=== PATIENT | male | born 1940 | race Caucasian/White ===

== ENCOUNTER 2019-07-21 12:15 | Inpatient (IN) | payer MEDICARE, MEDICAID ==
[~2019-07-21] VITALS: Ht 182.9 cm; Wt 87.6 kg
[~2019-07-21 12:15] MED LIST: ACET-1574 PO; ACET325T9 PO; ASPI-482 PO; ATOR10TA60 PO; BUSP5TAB PO; CALC-326 PO; DIVA125C2 PO; ERGO500027 PO; MAG30ORA2 PO; MAGN400O7 PO; METH29OI TP; POTA20TA4 PO; SENN-80 PO; SENN-82 PO; SERT100T PO
--- NOTE | 2019-07-21 12:31 | PHYS DOC ---
Past History Past Medical History: CVA, Dementia, Hypertension, TIA Past Surgical History: No Surgical History Smoking: Non-smoker Alcohol Use: None Drug Use: None Adult General Chief Complaint Chief Complaint: PSYCH EVALUATION [facility] HPI Patient is a 78-year-old male sent from his current assisted care residence due to behavioral issues. He has been approaching staff from behind and trying to scare them. He is been pulling on other residence shirts or taking personal items from other residents. He has been having periods of agitation. He will grab others and shake their arms, trying to kiss the staff, and pressing himself against others. Uncertain as to how long this is been going on. History is limited from the patient due to his previous CVA and history of dementia. Patient is uncertain as to why he is here at [facility].[] Review of Systems Review of Systems Constitutional: Denies fever or chills [] Eyes: Denies change in visual acuity, redness, or eye pain [] HENT: Denies nasal congestion or sore throat [] Respiratory: Denies cough or shortness of breath [] Cardiovascular: No additional information not addressed in [facility] [] GI: Denies abdominal pain, nausea, vomiting, bloody stools or diarrhea [] : Denies dysuria or hematuria [] Musculoskeletal: Denies back pain or joint pain [] Integument: Denies rash or skin lesions [] Neurologic: Denies headache, focal weakness or sensory changes [] Endocrine: Denies polyuria or polydipsia [] All other systems were reviewed and found to be within normal limits, except as documented in this note. Allergies Allergies Allergies Coded Allergies Type Severity Reaction Last Updated Verified Tetracyclines Allergy Intermediate 09/05/15 Yes ciprofloxacin Allergy Intermediate 09/05/15 Yes codeine Allergy Intermediate 09/05/15 Yes gatifloxacin Allergy Intermediate 09/05/15 Yes levofloxacin Allergy Intermediate 09/05/15 Yes ofloxacin Allergy Intermediate 09/05/15 Yes Physical Exam Physical Exam Constitutional: Well developed, well nourished, no acute distress, non-toxic appearance. [] HENT: Normocephalic, atraumatic, bilateral external ears normal, oropharynx moist, no oral exudates, nose normal. [] Eyes: PERRLA, EOMI, conjunctiva normal, no discharge. [] Neck: Normal range of motion, no tenderness, supple, no stridor. [] Cardiovascular:Heart rate regular rhythm, no murmur [] Lungs & Thorax: Bilateral breath sounds clear to auscultation [] Abdomen: Bowel sounds normal, soft, no tenderness, no masses, no pulsatile masses. [] Skin: Warm, dry, no erythema, no rash. [] Back: No tenderness, no CVA tenderness. [] Extremities: No tenderness, no cyanosis, no clubbing, ROM intact, no edema. [] Neurologic: Alert and oriented X 2, able to move all 4 extremities however right side appears weaker than the left, normal sensory function, right facial droop is present. [] Psychologic: Affect flat, mood normal. [] Current Patient Data Lab Results Laboratory Tests Test 07/21/19 12:23 07/21/19 12:33 Urine Collection Type Unknown Urine Color Aisha Urine Clarity Clear Urine pH 5.5 Urine Specific [place] 1.025 Urine Protein Neg Urine Glucose (UA) Neg mg/dL Urine Ketones (Stick) Trace mg/dL Urine Blood Neg Urine Nitrite Neg Urine Bilirubin Neg Urine Urobilinogen Dipstick 0.2 mg/dL Urine Leukocyte Esterase Neg Urine RBC 0 /HPF Urine WBC Rare /HPF Urine Squamous Epithelial Cells None /LPF Urine Bacteria 0 /HPF Urine Mucus Marked /LPF White Blood Count 8.0 x10^3/uL Red Blood Count 4.89 x10^6/uL Hemoglobin 14.9 g/dL Hematocrit 44.4 % Mean Corpuscular Volume 91 fL Mean Corpuscular Hemoglobin 30 pg Mean Corpuscular Hemoglobin Concent 34 g/dL Red Cell Distribution Width 13.6 % Platelet Count 180 x10^3/uL Neutrophils (%) (Auto) 52 % Lymphocytes (%) (Auto) 34 % Monocytes (%) (Auto) 10 % Eosinophils (%) (Auto) 3 % Basophils (%) (Auto) 1 % Neutrophils # (Auto) 4.2 x10^3uL Lymphocytes # (Auto) 2.7 x10^3/uL Monocytes # (Auto) 0.8 x10^3/uL Eosinophils # (Auto) 0.3 x10^3/uL Basophils # (Auto) 0.1 x10^3/uL Sodium Level 141 mmol/L Potassium Level 3.9 mmol/L Chloride Level 102 mmol/L Carbon Dioxide Level 31 mmol/L Anion Gap 8 Blood Urea Nitrogen 11 mg/dL Creatinine 1.2 mg/dL Estimated GFR (Cockcroft-Gault) 58.4 BUN/Creatinine Ratio 9 Glucose Level 107 mg/dL Calcium Level 9.1 mg/dL Magnesium Level 2.5 mg/dL Total Bilirubin 1.3 mg/dL Aspartate Amino Transf (AST/SGOT) 14 U/L Alanine Aminotransferase (ALT/SGPT) 17 U/L Alkaline Phosphatase 69 U/L Total Protein 8.2 g/dL Albumin 3.9 g/dL Albumin/Globulin Ratio 0.9 Valproic Acid (Depakene) Level 56 mcg/mL Valproic Acid Last Dose Date 07/21/2019 Valproic Acid Last Dose Time 0600 EKG EKG EKG shows a sinus rhythm at 51 bpm, left axis, QTC of 439 ms, no ST elevations. There are flipped T's in the lateral leads. No old EKG available for comparison. Interpreted by me at 1225[] Radiology/Procedures Radiology/Procedures [] Course & Med Decision Making Course & Med Decision Making Pertinent Labs and Imaging studies reviewed. (See chart for details) ED course: Patient arrived, was placed in bed, and tolerated exam well. After the return of the laboratory and EKG results, patient was determined to be medically stable for admission to [facility]. He was admitted in improved condition Medical decision making: Patient with a change in behavior requiring evaluation by [facility]. His magnesium level is noted to be slightly high at 2.5, however do not think that this is the trigger for his change in behavior given that the upper limit of normal is 2.4. Patient is not on any calcium chann el blockers nor magnesium-containing products according to the medicine list sent from the assisted care facility where he resides. This can be followed as needed. There is no evidence of a urinary tract infection causing this change in behavior. Do not see this as a stroke syndrome.[] Dragon Disclaimer Dragon Disclaimer This electronic medical record was generated, in whole or in part, using a voice recognition dictation system. Departure Departure: Impression: Primary Impression: Medical clearance for psychiatric admission Disposition: ADMITTED INPATIENT Admitting Physician: Other Condition: IMPROVED Referrals: GINO PAULINO [facility], MD (PCP) APOLLO MCCARTHY DO Jul 21, 2019 12:31
[2019-07-21 12:48] LABS: BASO # 0.1 x10^3/uL (0.0-0.2); BASO % 1 % (0-3); EOS # 0.3 x10^3/uL (0.0-0.7); EOS % 3 % (0-3); HEMATOCRIT 44.4 % (39.0-53.0); HEMOGLOBIN 14.9 g/dL (13.0-17.5); LYMPH # 2.7 x10^3/uL (1.0-4.8); LYMPH % 34 % (24-48); MEAN CORPUSCULAR HEMOGLOBIN 30 pg (25-35); MEAN CORPUSCULAR HGB CONC 34 g/dL (31-37); MEAN CORPUSCULAR VOLUME 91 fL (79-100); MONO # 0.8 x10^3/uL (0.0-1.1); MONO % 10 % (0-9); NEUT # 4.2 x10^3uL (1.8-7.7); NEUT % 52 % (31-73); PLATELET COUNT 180 x10^3/uL (140-400); RED BLOOD COUNT 4.89 x10^6/uL (4.30-5.70); RED CELL DISTRIBUTION WIDTH 13.6 % (11.5-14.5)
[2019-07-21 12:56] LABS: BILIRUBIN,URINE NEG (NEG); CLARITY,URINE CLEAR; COLOR,URINE AMBER; GLUCOSE,URINE NEG (NEG)
[2019-07-21 12:57] LABS: BACTERIA,URINE 0 /HPF (0-FEW); NITRITE,URINE NEG (NEG); RBC,URINE 0 /HPF (0-2); UROBILINOGEN,URINE 0.2 mg/dL (0.2 mg/dL); WBC,URINE RARE /HPF (0-4)
[2019-07-21 13:01] LABS: ALBUMIN 3.9 g/dL (3.4-5.0); ALBUMIN/GLOBULIN RATIO 0.9 (1.0-1.7); ALK PHOS 69 U/L (46-116); ALT (SGPT) 17 U/L (16-63); ANION GAP 8 (6-14); AST (SGOT) 14 U/L (15-37); BLOOD UREA NITROGEN 11 mg/dL (8-26); BUN/CREATININE RATIO 9 (6-20); CALCIUM 9.1 mg/dL (8.5-10.1); CARBON DIOXIDE 31 mmol/L (21-32); CHLORIDE 102 mmol/L (98-107); CREATININE 1.2 mg/dL (0.7-1.3); GFR 58.4; GLUCOSE 107 mg/dL (70-99); MAGNESIUM 2.5 mg/dL (1.8-2.4); POTASSIUM 3.9 mmol/L (3.5-5.1); SODIUM 141 mmol/L (136-145); TOTAL BILIRUBIN 1.3 mg/dL (0.2-1.0); TOTAL PROTEIN 8.2 g/dL (6.4-8.2); VAL ACID 56 mcg/mL (50-100)
--- NOTE | 2019-07-21 13:19 | EKG ---
[address] [address] Test Date: 2019-07-21 Test Time: 12:19:54 Pat Name: VIMAL GUPTA Department: Room: Gender: M [employer]: : [phone] Requested By: APOLLO MCCARTHY Order Number: [id number] Reading MD: Darryl Altamirano MD Measurements Intervals Cecil Rate: 51 P: -5 VT: 182 QRS: -26 QRSD: 84 T: 140 QT: 474 QTc: 439 Interpretive Statements SINUS RHYTHM LEFTWARD AXIS CONSIDER LEFT VENTRICULAR HYPERTROPHY QRS(T) CONTOUR ABNORMALITY CONSISTENT WITH ANTEROSEPTAL INFARCT PROBABLY OLD T ABNORMALITY IN ANTEROLATERAL LEADS ABNORMAL ECG Electronically Signed On 08-02-2019 14:28:14 CDT by Darryl Altamirano MD
[2019-07-21] MEDS ORDERED: MAG HYDROX/AL HYDROX/SIMETH 30 ML ORAL.SUSP PO PRN (15:00)
[2019-07-21] MEDS ORDERED: ACETAMINOPHEN 325 MG TABLET PO PRN (15:00)
[2019-07-21] MEDS ORDERED: MAGNESIUM HYDROXIDE 2,400 MG/30 ML ORAL.SUSP. PO PRN (15:00)
[2019-07-21] MEDS ORDERED: METHYL SALICYLATE/MENTHOL TOPICAL OINTMENT 57GM TUBE. TP PRN (15:00)
[2019-07-21] MEDS ORDERED: VALP250S18 PO (15:10)
[2019-07-21] MEDS ORDERED: SCOP1PAT11 TD (15:10)
[2019-07-21] MEDS ORDERED: TRAM1TAB56 PO (15:10)
[2019-07-21 15:59] VITALS: BP 117/67
[2019-07-21] MEDS: VALPROATE ACID 250 MG/5 ML ORAL SOLUTION PO SCH ×2 (18:07→20:02)
[2019-07-21] MEDS: busPIRone 10 MG TABLET. PO SCH ×2 (18:07→20:01)
[2019-07-21] MEDS ORDERED: traMADol 50 MG TABLET PO PRN (18:30)
[2019-07-21] MEDS: ATORVASTATIN CALCIUM 20 MG TABLET PO SCH (20:01)
[2019-07-21] MEDS: CALCIUM CARB/VIT D3 500/200 TABLET PO SCH (20:01)
[2019-07-21] MEDS: SENNOSIDES/DOCUSATE 8.6/50MG TABLET. PO SCH (20:01)
--- NOTE | 2019-07-21 22:11 | PDOC ---
Exam Note: Zak Note: Please also refer to the separate dictated note~for this date of service dictated separately. Discussed the patient with Nursing staff reviewed the chart.~Reviewed interim history and current functioning. Reviewed vital signs,~Labs/ Radiology~and current medications noted below. Continue current treatment with the changes noted in the dictated addendum note Assessment: Vital Signs/I&O: Vital Signs Date Time Temp Pulse Resp B/P (MAP) Pulse Ox O2 Delivery O2 Flow Rate FiO2 07/21/19 15:59 98.4 62 18 117/67 (84) 94 07/21/19 12:31 Room Air Labs: Laboratory Tests Test 07/21/19 12:23 07/21/19 12:33 Urine Collection Type Unknown Urine Color Aisha Urine Clarity Clear Urine pH 5.5 Urine Specific [place] 1.025 Urine Protein Neg (NEG-TRACE) Urine Glucose (UA) Neg mg/dL (NEG) Urine Ketones (Stick) Trace mg/dL (NEG) Urine Blood Neg (NEG) Urine Nitrite Neg (NEG) Urine Bilirubin Neg (NEG) Urine Urobilinogen Dipstick 0.2 mg/dL (0.2 mg/dL) Urine Leukocyte Esterase Neg (NEG) Urine RBC 0 /HPF (0-2) Urine WBC Rare /HPF (0-4) Urine Squamous Epithelial Cells None /LPF Urine Bacteria 0 /HPF (0-FEW) Urine Mucus Marked /LPF White Blood Count 8.0 x10^3/uL (4.0-11.0) Red Blood Count 4.89 x10^6/uL (4.30-5.70) Hemoglobin 14.9 g/dL (13.0-17.5) Hematocrit 44.4 % (39.0-53.0) Mean Corpuscular Volume 91 fL (79-100) Mean Corpuscular Hemoglobin 30 pg (25-35) Mean Corpuscular Hemoglobin Concent 34 g/dL (31-37) Red Cell Distribution Width 13.6 % (11.5-14.5) Platelet Count 180 x10^3/uL (140-400) Neutrophils (%) (Auto) 52 % (31-73) Lymphocytes (%) (Auto) 34 % (24-48) Monocytes (%) (Auto) 10 % (0-9) H Eosinophils (%) (Auto) 3 % (0-3) Basophils (%) (Auto) 1 % (0-3) Neutrophils # (Auto) 4.2 x10^3uL (1.8-7.7) Lymphocytes # (Auto) 2.7 x10^3/uL (1.0-4.8) Monocytes # (Auto) 0.8 x10^3/uL (0.0-1.1) Eosinophils # (Auto) 0.3 x10^3/uL (0.0-0.7) Basophils # (Auto) 0.1 x10^3/uL (0.0-0.2) Sodium Level 141 mmol/L (136-145) Potassium Level 3.9 mmol/L (3.5-5.1) Chloride Level 102 mmol/L (98-107) Carbon Dioxide Level 31 mmol/L (21-32) Anion Gap 8 (6-14) Blood Urea Nitrogen 11 mg/dL (8-26) Creatinine 1.2 mg/dL (0.7-1.3) Estimated GFR (Cockcroft-Gault) 58.4 BUN/Creatinine Ratio 9 (6-20) Glucose Level 107 mg/dL (70-99) H Calcium Level 9.1 mg/dL (8.5-10.1) Magnesium Level 2.5 mg/dL (1.8-2.4) H Total Bilirubin 1.3 mg/dL (0.2-1.0) H Aspartate Amino Transferase (AST) 14 U/L (15-37) L Alanine Aminotransferase (ALT) 17 U/L (16-63) Alkaline Phosphatase 69 U/L (46-116) Total Protein 8.2 g/dL (6.4-8.2) Albumin 3.9 g/dL (3.4-5.0) Albumin/Globulin Ratio 0.9 (1.0-1.7) L Valproic Acid Level 56 mcg/mL (50-100) Valproic Acid Last Dose Date 07/21/2019 Valproic Acid Last Dose Time 0600 Current Medications: Meds: Current Medications Medications (Trade) Dose Ordered Sig/Steve Route PRN Reason Start Time Stop Time Status Last Admin Dose Admin Calcium/Vitamin D (Oscal D 500mg/ 200uts) 1 tab BID PO 07/21/19 21:00 07/21/19 20:02 Senna/Docusate Sodium (Senna Plus) 1 tab BID PO 07/21/19 21:00 07/21/19 20:02 Atorvastatin Calcium (Lipitor) 20 mg QHS PO 07/21/19 21:00 07/21/19 20:02 Buspirone HCl (Buspar) 10 mg TID PO 07/21/19 15:30 07/21/19 20:02 Valproic Acid (Depakene) 250 mg TID PO 07/21/19 15:30 07/21/19 20:02 I have reviewed the current psychotropics carefully including drug interactions. Risk benefit ratio favors no change other than as noted in my dictated progress note. Diagnosis: Problems: (1) Anxiety disorder (2) Impulse control disorder (3) Mild cognitive impairment (4) Major depressive disorder, recurrent episode (5) Cerebrovascular accident (CVA) due to vascular occlusion (6) Obsessive compulsive disorder JEANNINE MAGANA MD Jul 21, 2019 22:10
[2019-07-22 01:06] LABS: THYROXINE 7.1 ug/dL (4.5-12.0)
[2019-07-22 04:07] LABS: HEMOGLOBIN A1C 5.9 % (4.8-5.6)
[2019-07-22 06:11] VITALS: BP 122/77
[2019-07-22] MEDS: busPIRone 10 MG TABLET. PO SCH ×3 (07:47→21:39)
[2019-07-22] MEDS: VALPROATE ACID 250 MG/5 ML ORAL SOLUTION PO SCH ×3 (07:47→21:39)
[2019-07-22] MEDS: CALCIUM CARB/VIT D3 500/200 TABLET PO SCH ×2 (07:47→21:39)
[2019-07-22] MEDS: SENNOSIDES/DOCUSATE 8.6/50MG TABLET. PO SCH ×2 (07:47→21:39)
[2019-07-22] MEDS: POTASSIUM CHLORIDE 20 MEQ TABLET.ER. PO SCH (07:50)
[2019-07-22] MEDS: SERTRALINE 100 MG TABLET. PO SCH (07:51)
[2019-07-22] MEDS: ASPIRIN ENTERIC COATED 81 MG TABLET.DR. PO SCH (07:51)
[2019-07-22] MEDS: SCOPOLAMINE 1.5MG PATCH. TD SCH (07:51)
[2019-07-22] MEDS ORDERED: FLU VAX QS 2019-20 (36MOS+)/PF 0.5 ML SYRINGE. VAX IM ONE (08:00)
[2019-07-22] MEDS ORDERED: SCOPOLAMINE 1.5MG PATCH. TD SCH (09:00)
[2019-07-22 14:11] LABS: THYROID STIM HORMONE (TSH) 2.352 uIU/mL (0.358-3.740)
[2019-07-22 17:00] VITALS: BP 125/74
[2019-07-22] MEDS: ATORVASTATIN CALCIUM 20 MG TABLET PO SCH (21:39)
--- NOTE | 2019-07-22 21:49 | PDOC ---
Exam Note: Zak Note: Please also refer to the separate dictated note~for this date of service dictated separately.~Patient seen individually. Discussed the patient with Nursing staff reviewed the chart.~Reviewed interim history and current functioning. Reviewed vital signs,~Labs/ Radiology~and current medications noted below. Continue current treatment with the changes noted in the dictated addendum note Assessment: Vital Signs/I&O: Vital Signs Date Time Temp Pulse Resp B/P (MAP) Pulse Ox O2 Delivery O2 Flow Rate FiO2 07/22/19 17:00 98.1 56 16 125/74 (91) 95 07/21/19 12:31 Room Air I & O 07/21/19 07/21/19 07/22/19 14:59 22:59 06:59 Intake Total 360 ml 120 ml Balance 360 ml 120 ml Current Medications: Meds: Current Medications Medications (Trade) Dose Ordered Sig/Steve Route PRN Reason Start Time Stop Time Status Last Admin Dose Admin Aspirin (Aspirin Enteric Coated) 81 mg DAILY PO 07/22/19 09:00 07/22/19 07:53 Potassium Chloride (Klor-Con) 20 meq DAILY PO 07/22/19 09:00 07/22/19 07:53 Sertraline HCl (Zoloft) 100 mg DAILY PO 07/22/19 09:00 07/22/19 07:53 Scopolamine (Transderm-Scop) 1 patch Q3DAYS TD 07/22/19 09:00 07/22/19 07:53 Influenza Virus Vaccine Quadrival (Afluria Quad 2019-20 (3yr Up) Syringe) 0.5 ml ONCE ONCE VAX IM 07/22/19 08:00 07/22/19 08:01 DC 07/22/19 10:12 I have reviewed the current psychotropics carefully including drug interactions. Risk benefit ratio favors no change other than as noted in my dictated progress note. Diagnosis: Problems: (1) Anxiety disorder (2) Impulse control disorder (3) Mild cognitive impairment (4) Major depressive disorder, recurrent episode (5) Cerebrovascular accident (CVA) due to vascular occlusion (6) Obsessive compulsive disorder JEANNINE MAGANA MD Jul 22, 2019 21:49
--- NOTE | 2019-07-23 00:33 | CONS ---
DATE OF CONSULTATION: 07/22/2019 REASON FOR CONSULTATION: Medical management. HISTORY OF PRESENT ILLNESS: The patient is a 78-year-old male patient, a resident at [facility], who was admitted through the Emergency Room of [facility] to the [facility] on account of behavioral issues. He has been approaching staff from behind and trying to scare them. He has been pulling on other residents' shirts. He is also taking personal items from other resident, has been having periods of agitation. He will grab others and shake their arms, trying to kiss the staff and pressing himself against others, all this in a background of major neurocognitive disorder, vascular, Alzheimer with delusion, depression, behavioral disorder and impulse control disorder. PAST MEDICAL HISTORY: Significant for hypertension, hyperlipidemia, TIA with right-sided weakness, expressive aphasia, right-sided hemiplegia. PAST SURGICAL HISTORY: Unobtainable. PAST PSYCHIATRIC HISTORY: Significant for major depressive disorder, impulse control as well as major neurocognitive disorder. ALLERGIES: He is allergic to TETRACYCLINE, CIPROFLOXACIN, CODEINE, GATIFLOXACIN, LEVOFLOXACIN, OFLOXACIN. MEDICATIONS: He is currently on following medications: He is on atorvastatin calcium 20 mg once a day at bedtime, aspirin 81 mg once a day, tramadol, Ultracet one tablet every 4 hours, valproic acid 250 mg 3 times a day, sertraline 100 mg p.o. daily, buspirone 5 mg 3 times a day, calcium carbonate with vitamin D one tablet twice a day, potassium chloride 20 mEq once a day, Senna-S 1 tablet twice a day, scopolamine for transdermal patches 1.5 mg every 72 hours, ergocalciferol, vitamin D2 50,000 international unit once a week. FAMILY HISTORY: Noncontributory. SOCIAL HISTORY: He is a resident at [facility]. PHYSICAL EXAMINATION: GENERAL: On examining him, the patient was resting slightly propped up in bed, in no apparent distress, slightly pale, but no jaundice, cyanosis or thyromegaly. No jugular venous distention. No limb edema. VITAL SIGNS: His heart rate was 51, blood pressure was 117/67, temperature was 98.2, respiratory rate was 18 and oxygen saturation was 96% on room air. HEAD, EYES, EARS, NOSE AND THROAT: Showed normocephalic, atraumatic. NECK: Supple. HEART: Showed normal first and second heart sounds. No gallop or murmur. CHEST: Clear to auscultation. No crepitation or rhonchi. ABDOMEN: Distended, soft, nontender. NEUROLOGIC: He is awake, alert. All his cranial nerves are intact. He seemed to have expressive aphasia and has right-sided hemiparesis, more so in his right upper extremity than left upper extremity with fixed flexion contraction of his right hand. LABORATORY WORK: Showed that his white cell count was 8000, hemoglobin 15, hematocrit 45, MCV 91, and platelet count of 180,000 with the manual differential showed 52% polymorphs, 34% lymphocytes and 10% monocytes. His chemistry showed a serum sodium 141, potassium 3.9, chloride 109, bicarbonate 31, anion gap of 8, BUN 11, creatinine 1.2, estimated GFR was 58 mL per minute. His glucose 107, calcium was 9.1, magnesium was 2.5. Total bilirubin, AST, ALT, alkaline phosphatase were normal. Total protein was 8.2 and albumin was 3.9. His urinalysis was essentially unremarkable. Toxic screen showed his valproic acid was 56 mcg/mL, which is well within therapeutic range and his Treponema pallidum antibody was nonreactive. IMPRESSION: In summary, this is a 78-year-old male patient, a resident at [facility], who was admitted on account of behavioral disturbances. The patient was scaring staff by approaching them from behind, pulling on other residents' shirts and taking their personal items. He has periods of agitation, grabs others by their arms, tries to kiss staff, presses himself against others, all this in a background of major neurocognitive disorder, vascular, Alzheimer with delusion, depression. Medically, he is known to have hypertension, hyperlipidemia, seems to be left middle cerebral artery territory infarct with right-sided hemiplegia and aphasia, although he seemed to be able to walk without any assistance or assistive devices. His vital signs are stable and lab works are all within acceptable range. So from medical point of view, the patient is stable. I will obviously follow all his lab works that are still pending at the time of this dictation and make any necessary recommendation. Thank you, Dr. Swanson, for allowing me to participate in the care of this patient. CLAUDIA GAMEZ MD DR: Anu JOB#: [id number] / [id number]
[2019-07-23 06:11] VITALS: BP 123/71
[2019-07-23] MEDS: ASPIRIN ENTERIC COATED 81 MG TABLET.DR. PO SCH (08:06)
[2019-07-23] MEDS: SERTRALINE 100 MG TABLET. PO SCH (08:06)
[2019-07-23] MEDS: POTASSIUM CHLORIDE 20 MEQ TABLET.ER. PO SCH (08:06)
[2019-07-23] MEDS: CALCIUM CARB/VIT D3 500/200 TABLET PO SCH ×2 (08:06→19:49)
[2019-07-23] MEDS: busPIRone 10 MG TABLET. PO SCH ×3 (08:06→19:49)
[2019-07-23] MEDS: VALPROATE ACID 250 MG/5 ML ORAL SOLUTION PO SCH ×3 (08:06→19:49)
[2019-07-23] MEDS: SENNOSIDES/DOCUSATE 8.6/50MG TABLET. PO SCH ×2 (08:07→19:49)
--- NOTE | 2019-07-23 10:24 | HP ---
ADMIT DATE: 07/21/2019 ADMISSION HISTORY AND EVALUATION This late entry 07/21/2019 covers the elements not covered in my initial note. IDENTIFYING DATA: The patient is a 78-year-old male referred to us from [facility] by Dr. Kate, his primary care physician and after I had multiple calls from the staff at [facility] including Rachel Hubbard, Family Mediator, over the last several weeks, more so over the last couple of days prior to admission on account of the patient's behaviors being quite scary and overwhelming for the staff. He would approach them from behind. He was pulling on other residents' shirts and taking their personal items. He had periods of agitation, would grab others by their arms, tried to kiss staff members and was "pressing himself" against others. He had failed outpatient psychiatric interventions with myself and referred for inpatient psychiatric stabilization, having failed outpatient psychiatric interventions. CHIEF COMPLAINT: "No." The patient has expressive aphasia, status post CVA in addition to his memory deficits. HISTORY OF PRESENT ILLNESS: The patient has a history of mild cognitive impairment versus major neurocognitive disorder, vascular with depression. Most recently, he has had increasing inappropriate sexual behaviors, grabbing others, trying to kiss staff members at different times and other behaviors noted above. He has been shaking the arm of other staff members and nurses. He has had sleep and appetite changes with significant mood swings and has failed outpatient psychiatric interventions. PAST PSYCHIATRIC HISTORY: As above. MEDICAL HISTORY: Positive for hypertension, dysphagia, status post CVA, anxiety disorder, hyperlipidemia, status post TIA with right-sided weakness, dementia with behavioral disturbance, repeated falls, expressive aphasia, weakness, abnormal gait; hemiplegia, dominant side; impulse control disorder. ALLERGIES: CODEINE, TETRACYCLINE, CIPROFLOXACIN, LEVAQUIN, TEQUIN and QUINOLONES. CODE STATUS: Full code. ACCU-CHEKS: None. DIET: Regular, but did not bring his dentures. MEDICATIONS: Takes them whole according to chart. Ambulates up ad elly, right-sided gait abnormality. UA on 07/21/2019 was negative. CURRENT PSYCHOTROPICS: Zoloft 100 mg a day, BuSpar 10 mg t.i.d., Depakene 250 mg t.i.d. FAMILY HISTORY: Noncontributory. SOCIAL HISTORY: The patient does have a son who is not very involved in his care. He has been residing at the [facility] for several years. ASSETS: Stable living at the facility. He does have support from his son, even though it is limited. REACTION TO HOSPITALIZATION: The patient accepting of it. MENTAL STATUS EXAMINATION: The patient was seen individually. He is oriented to himself, seemed to recognize me, quite obsessive, anxious, repetitive, following me around the unit. Speech is difficult to understand consequent to his aphasia. Abstraction fair, computation impaired, language function intact. Mood is somewhat depressed, anxious. He is suspicious, sexually inappropriate. No active suicidal or homicidal ideation. IMPRESSION: Possible bipolar disorder, mixed; obsessive-compulsive disorder; anxiety disorder, unspecified; mild cognitive impairment versus major neurocognitive disorder, early vascular with delusion, depression; anxiety disorder, unspecified. Rest as above. RECOMMENDATION: Admit to Geropsychiatry Unit at [facility]. I will see the patient daily individually from a psychiatric standpoint. Medical followup with Dr. Perla. Continue the patient on his current psychotropics. May consider starting Provera for his sexually inappropriate behaviors. Check a valproic acid level to reach therapeutic level. We will make further adjustments post baseline assessment. JEANNINE MAGANA MD DR: ABDIFATAH/mony JOB#: [id number] / [id number]
[2019-07-23 17:19] VITALS: BP 133/75
[2019-07-23] MEDS: ATORVASTATIN CALCIUM 20 MG TABLET PO SCH (19:49)
--- NOTE | 2019-07-23 22:10 | PDOC ---
Exam Note: Zak Note: Please also refer to the separate dictated note~for this date of service dictated separately.~Patient seen individually. Discussed the patient with Nursing staff reviewed the chart.~Reviewed interim history and current functioning. Reviewed vital signs,~Labs/ Radiology~and current medications noted below. Continue current treatment with the changes noted in the dictated addendum note Assessment: Vital Signs/I&O: Vital Signs Date Time Temp Pulse Resp B/P (MAP) Pulse Ox O2 Delivery O2 Flow Rate FiO2 07/23/19 17:19 97.0 56 16 133/75 (94) 95 07/21/19 12:31 Room Air I & O 07/22/19 07/22/19 07/23/19 15:00 23:00 07:00 Intake Total 600 ml 240 ml 120 ml Balance 600 ml 240 ml 120 ml Current Medications: I have reviewed the current psychotropics carefully including drug interactions. Risk benefit ratio favors no change other than as noted in my dictated progress note. Diagnosis: Problems: (1) Anxiety disorder (2) Impulse control disorder (3) Mild cognitive impairment (4) Major depressive disorder, recurrent episode (5) Cerebrovascular accident (CVA) due to vascular occlusion (6) Obsessive compulsive disorder JEANNINE MAGANA MD Jul 23, 2019 22:10
--- NOTE | 2019-07-23 22:52 | PN ---
DATE: 07/23/2019 PSYCHIATRIC PROGRESS NOTE This late entry 07/22/2019 covers elements not covered in my initial note. SUBJECTIVE: I met with the patient in the evening of 07/22/2019. Per nursing report, the patient has been withdrawn to his room, but compliant with medications, at times somewhat inappropriate with female nursing staff. REVIEW OF SYSTEMS: No CV, , pulmonary, eye, ENT system symptoms on review. He does have weakness consistent with his CVA. Reliability poor. MENTAL STATUS EXAMINATION: Reasonably oriented to himself and situation. Speech is difficult to understand. Abstraction fair, computation impaired, language function intact, attention span short. Short term memory is impaired. No suicidal or homicidal ideation. LABORATORY DATA: Reviewed. IMPRESSION: Probable bipolar disorder, mixed; obsessive-compulsive disorder; anxiety disorder, unspecified; impulse control disorder, unspecified; mild cognitive impairment. Rest as above. PLAN: Continue Zoloft, BuSpar, Depakene. His valproic acid level is therapeutic at 56. We will start Provera 2.5 mg a day for his sexually inappropriate and aggressive behaviors if approved by Dr. Perla from a medical standpoint. Rest unchanged for now. MAN Dayami MAGANA MD DR: ABDIFATAH/mony JOB#: [id number] / [id number]
[2019-07-24 05:09] VITALS: BP 136/76
[2019-07-24] MEDS: ASPIRIN ENTERIC COATED 81 MG TABLET.DR. PO SCH (08:23)
[2019-07-24] MEDS: SENNOSIDES/DOCUSATE 8.6/50MG TABLET. PO SCH ×2 (08:23→21:19)
[2019-07-24] MEDS: CALCIUM CARB/VIT D3 500/200 TABLET PO SCH ×2 (08:23→21:19)
[2019-07-24] MEDS: SERTRALINE 100 MG TABLET. PO SCH (08:23)
[2019-07-24] MEDS: POTASSIUM CHLORIDE 20 MEQ TABLET.ER. PO SCH (08:24)
[2019-07-24] MEDS: busPIRone 10 MG TABLET. PO SCH ×3 (08:24→21:19)
[2019-07-24] MEDS: VALPROATE ACID 250 MG/5 ML ORAL SOLUTION PO SCH ×3 (08:24→21:19)
[2019-07-24 16:07] VITALS: BP 106/60
[2019-07-24] MEDS: ATORVASTATIN CALCIUM 20 MG TABLET PO SCH (21:19)
--- NOTE | 2019-07-24 23:11 | PDOC ---
Exam Note: Zak Note: Please also refer to the separate dictated note~for this date of service dictated separately.~Patient seen individually. Discussed the patient with Nursing staff reviewed the chart.~Reviewed interim history and current functioning. Reviewed vital signs,~Labs/ Radiology~and current medications noted below. Continue current treatment with the changes noted in the dictated addendum note Assessment: Vital Signs/I&O: Vital Signs Date Time Temp Pulse Resp B/P (MAP) Pulse Ox O2 Delivery O2 Flow Rate FiO2 07/24/19 16:07 98.4 58 20 106/60 (75) 95 07/24/19 05:09 Room Air I & O 07/23/19 07/23/19 07/24/19 15:00 23:00 07:00 Intake Total 840 ml 240 ml 120 ml Balance 840 ml 240 ml 120 ml Current Medications: Meds: Current Medications Medications (Trade) Dose Ordered Sig/Steve Route PRN Reason Start Time Stop Time Status Last Admin Dose Admin Medroxyprogesterone Acetate (Provera) 2.5 mg DAILY PO 07/24/19 09:00 07/24/19 08:26 I have reviewed the current psychotropics carefully including drug interactions. Risk benefit ratio favors no change other than as noted in my dictated progress note. Diagnosis: Problems: (1) Medical clearance for psychiatric admission (2) Anxiety disorder (3) Impulse control disorder (4) Mild cognitive impairment (5) Major depressive disorder, recurrent episode (6) Cerebrovascular accident (CVA) due to vascular occlusion (7) Obsessive compulsive disorder JEANNINE MAGANA MD Jul 24, 2019 23:11
--- NOTE | 2019-07-25 02:04 | PN ---
DATE: 07/23/2019 PSYCHIATRIC PROGRESS NOTE This late entry 07/23/2019 covers the elements not covered in my initial note. SUBJECTIVE: I met with the patient in the evening of 07/23/2019. Per SHARIF Rowe, the patient slept 5-1/2 hours previous night. He has not been sexually inappropriate or aggressive. He remains somewhat impulsive, touching staff, but easily redirected. REVIEW OF SYSTEMS: No CV, , pulmonary, eye, ENT system symptoms on review. Reliability is poor. He does have expressive aphasia. MENTAL STATUS EXAM: Oriented to himself and situation, but appears more confused than years because of his expressive aphasia. Abstraction fair, computation impaired, language function intact, attention span short. Mood and affect remain somewhat anxious, at times, dysphoric and somewhat impulsive. LABORATORY DATA: Reviewed. IMPRESSION: Unchanged from initial note. PLAN: No change from initial note. Provera has been added and we may need to adjust this further. MAN Dayami MAGANA MD DR: ABDIFATAH/mony JOB#: [id number] / [id number]
[2019-07-25 06:36] VITALS: BP 119/67
[2019-07-25] MEDS: CALCIUM CARB/VIT D3 500/200 TABLET PO SCH ×2 (08:21→20:31)
[2019-07-25] MEDS: POTASSIUM CHLORIDE 20 MEQ TABLET.ER. PO SCH (08:21)
[2019-07-25] MEDS: SCOPOLAMINE 1.5MG PATCH. TD SCH (08:21)
[2019-07-25] MEDS: SERTRALINE 100 MG TABLET. PO SCH (08:21)
[2019-07-25] MEDS: busPIRone 10 MG TABLET. PO SCH ×3 (08:21→20:31)
[2019-07-25] MEDS: SENNOSIDES/DOCUSATE 8.6/50MG TABLET. PO SCH ×2 (08:21→20:31)
[2019-07-25] MEDS: ASPIRIN ENTERIC COATED 81 MG TABLET.DR. PO SCH (08:21)
[2019-07-25] MEDS: VALPROATE ACID 250 MG/5 ML ORAL SOLUTION PO SCH ×3 (08:22→20:31)
[2019-07-25 16:00] VITALS: BP 92/55
[2019-07-25 20:31] VITALS: BP 124/56
[2019-07-25] MEDS: ATORVASTATIN CALCIUM 20 MG TABLET PO SCH (20:31)
--- NOTE | 2019-07-25 21:45 | PDOC ---
Exam Note: Zak Note: Please also refer to the separate dictated note~for this date of service dictated separately.~Patient seen individually. Discussed the patient with Nursing staff reviewed the chart.~Reviewed interim history and current functioning. Reviewed vital signs,~Labs/ Radiology~and current medications noted below. Continue current treatment with the changes noted in the dictated addendum note Assessment: Vital Signs/I&O: Vital Signs Date Time Temp Pulse Resp B/P (MAP) Pulse Ox O2 Delivery O2 Flow Rate FiO2 07/25/19 20:31 58 124/56 (78) 07/25/19 16:00 98.3 18 100 07/24/19 05:09 Room Air I & O 07/24/19 07/24/19 07/25/19 15:00 23:00 07:00 Intake Total 360 ml 480 ml Balance 360 ml 480 ml Current Medications: I have reviewed the current psychotropics carefully including drug interactions. Risk benefit ratio favors no change other than as noted in my dictated progress note. Diagnosis: Problems: (1) Anxiety disorder (2) Impulse control disorder (3) Mild cognitive impairment (4) Major depressive disorder, recurrent episode (5) Cerebrovascular accident (CVA) due to vascular occlusion (6) Obsessive compulsive disorder JEANNINE MAGANA MD Jul 25, 2019 21:44
[2019-07-26 06:17] VITALS: BP 132/78
[2019-07-26] MEDS: ASPIRIN ENTERIC COATED 81 MG TABLET.DR. PO SCH (08:15)
[2019-07-26] MEDS: busPIRone 10 MG TABLET. PO SCH ×3 (08:15→19:59)
[2019-07-26] MEDS: VALPROATE ACID 250 MG/5 ML ORAL SOLUTION PO SCH ×3 (08:15→19:58)
[2019-07-26] MEDS: SERTRALINE 100 MG TABLET. PO SCH (08:15)
[2019-07-26] MEDS: POTASSIUM CHLORIDE 20 MEQ TABLET.ER. PO SCH (08:16)
[2019-07-26] MEDS: CALCIUM CARB/VIT D3 500/200 TABLET PO SCH ×2 (08:16→19:59)
[2019-07-26] MEDS: SENNOSIDES/DOCUSATE 8.6/50MG TABLET. PO SCH ×2 (08:16→19:58)
[2019-07-26 16:19] VITALS: BP 116/73
[2019-07-26] MEDS: ATORVASTATIN CALCIUM 20 MG TABLET PO SCH (19:59)
--- NOTE | 2019-07-26 21:47 | PDOC ---
Exam Note: Zak Note: Please also refer to the separate dictated note~for this date of service dictated separately.~Patient seen individually. Discussed the patient with Nursing staff reviewed the chart.~Reviewed interim history and current functioning. Reviewed vital signs,~Labs/ Radiology~and current medications noted below. Continue current treatment with the changes noted in the dictated addendum note Assessment: Vital Signs/I&O: Vital Signs Date Time Temp Pulse Resp B/P (MAP) Pulse Ox O2 Delivery O2 Flow Rate FiO2 07/26/19 16:19 98.2 65 18 116/73 (87) 96 07/24/19 05:09 Room Air I & O 07/25/19 07/25/19 07/26/19 15:00 23:00 07:00 Intake Total 480 ml 240 ml 240 ml Balance 480 ml 240 ml 240 ml Current Medications: I have reviewed the current psychotropics carefully including drug interactions. Risk benefit ratio favors no change other than as noted in my dictated progress note. Diagnosis: Problems: (1) Anxiety disorder (2) Impulse control disorder (3) Mild cognitive impairment (4) Major depressive disorder, recurrent episode (5) Cerebrovascular accident (CVA) due to vascular occlusion (6) Obsessive compulsive disorder JEANNINE MAGANA MD Jul 26, 2019 21:47
--- NOTE | 2019-07-27 03:37 | PN ---
DATE: 07/24/2019 PSYCHIATRIC PROGRESS NOTE This late entry 07/24/2019 covers elements not covered in my initial note. SUBJECTIVE: I met with the patient in the evening of 07/24/2019. The patient slept 5-3/4 hours previous night. He has been disorganized. No sexually inappropriate behaviors, calm, cooperative, medication compliant. REVIEW OF SYSTEMS: No CV, , pulmonary, eye system symptoms on review. He has difficulty expressing himself. MENTAL STATUS EXAM: Oriented to himself and situation. Speech is difficult to understand, expressive aphasia. Abstraction fair, computation impaired, language function intact, attention span short. Mood and affect withdrawn. LABORATORY DATA: Reviewed. IMPRESSION: Unchanged from initial note. PLAN: No change from initial note. MAN Dayami MAGANA MD DR: ABDIFATAH/mony JOB#: [id number] / [id number]
--- NOTE | 2019-07-27 04:26 | PN ---
DATE: 07/25/2019 PSYCHIATRIC PROGRESS NOTE This late entry 07/25/2019 covers the elements not covered in my initial note. SUBJECTIVE: I met with the patient in the evening. The patient slept 5-1/4 hours previous night. He has been calm, compliant. No sexual aggression and he is compliant with medications. REVIEW OF SYSTEMS: No CV, , pulmonary, eye system symptoms on review. Reliability varies. He does have expressive aphasia and phonological deficits, status post cerebrovascular accident. MENTAL STATUS EXAM: Reasonably oriented to place and situation. Speech is difficult to understand. Abstraction fair, computation impaired, language function intact, attention span short. Mood and affect, lability is improved. LABORATORY DATA: Reviewed. IMPRESSION: Unchanged from initial note. PLAN: No change from initial note. MAN Dayami MAGANA MD DR: ABDIFATAH/mony JOB#: [id number] / [id number]
[2019-07-27 06:17] VITALS: BP 125/73
[2019-07-27 07:08] LABS: BASO # 0.1 x10^3/uL (0.0-0.2); BASO % 1 % (0-3); EOS # 0.3 x10^3/uL (0.0-0.7); EOS % 4 % (0-3); HEMOGLOBIN 14.1 g/dL (13.0-17.5); LYMPH # 3.5 x10^3/uL (1.0-4.8); LYMPH % 38 % (24-48); MEAN CORPUSCULAR HEMOGLOBIN 30 pg (25-35); MEAN CORPUSCULAR HGB CONC 34 g/dL (31-37); MEAN CORPUSCULAR VOLUME 90 fL (79-100); MONO # 0.7 x10^3/uL (0.0-1.1); MONO % 7 % (0-9); NEUT # 4.6 x10^3uL (1.8-7.7); NEUT % 50 % (31-73); PLATELET COUNT 200 x10^3/uL (140-400); RED BLOOD COUNT 4.68 x10^6/uL (4.30-5.70); WHITE BLOOD COUNT 9.1 x10^3/uL (4.0-11.0)
[2019-07-27 07:27] LABS: ALBUMIN 3.7 g/dL (3.4-5.0); ALBUMIN/GLOBULIN RATIO 0.9 (1.0-1.7); CALCIUM 8.8 mg/dL (8.5-10.1); CREATININE 1.2 mg/dL (0.7-1.3); GFR 58.4; POTASSIUM 3.9 mmol/L (3.5-5.1); TOTAL PROTEIN 7.7 g/dL (6.4-8.2)
[2019-07-27] MEDS: CALCIUM CARB/VIT D3 500/200 TABLET PO SCH ×2 (08:54→19:52)
[2019-07-27] MEDS: VALPROATE ACID 250 MG/5 ML ORAL SOLUTION PO SCH ×3 (08:54→19:52)
[2019-07-27] MEDS: busPIRone 10 MG TABLET. PO SCH ×3 (08:55→19:53)
[2019-07-27] MEDS: SENNOSIDES/DOCUSATE 8.6/50MG TABLET. PO SCH ×2 (08:55→19:53)
[2019-07-27] MEDS: POTASSIUM CHLORIDE 20 MEQ TABLET.ER. PO SCH (08:55)
[2019-07-27] MEDS: SERTRALINE 100 MG TABLET. PO SCH (08:55)
[2019-07-27] MEDS: ASPIRIN ENTERIC COATED 81 MG TABLET.DR. PO SCH (08:55)
[2019-07-27 17:03] VITALS: BP 117/69
[2019-07-27] MEDS: ATORVASTATIN CALCIUM 20 MG TABLET PO SCH (19:53)
--- NOTE | 2019-07-27 22:11 | PDOC ---
Exam Note: Zak Note: Please also refer to the separate dictated note~for this date of service dictated separately.~Patient seen individually. Discussed the patient with Nursing staff reviewed the chart.~Reviewed interim history and current functioning. Reviewed vital signs,~Labs/ Radiology~and current medications noted below. Continue current treatment with the changes noted in the dictated addendum note Assessment: Vital Signs/I&O: Vital Signs Date Time Temp Pulse Resp B/P (MAP) Pulse Ox O2 Delivery O2 Flow Rate FiO2 07/27/19 17:03 98.7 68 16 117/69 (85) 94 07/27/19 06:17 Room Air I & O 07/26/19 07/26/19 07/27/19 14:59 22:59 06:59 Intake Total 480 ml 420 ml 120 ml Balance 480 ml 420 ml 120 ml Labs: Laboratory Tests Test 07/27/19 06:40 White Blood Count 9.1 x10^3/uL (4.0-11.0) Red Blood Count 4.68 x10^6/uL (4.30-5.70) Hemoglobin 14.1 g/dL (13.0-17.5) Hematocrit 42.0 % (39.0-53.0) Mean Corpuscular Volume 90 fL (79-100) Mean Corpuscular Hemoglobin 30 pg (25-35) Mean Corpuscular Hemoglobin Concent 34 g/dL (31-37) Red Cell Distribution Width 13.0 % (11.5-14.5) Platelet Count 200 x10^3/uL (140-400) Neutrophils (%) (Auto) 50 % (31-73) Lymphocytes (%) (Auto) 38 % (24-48) Monocytes (%) (Auto) 7 % (0-9) Eosinophils (%) (Auto) 4 % (0-3) H Basophils (%) (Auto) 1 % (0-3) Neutrophils # (Auto) 4.6 x10^3uL (1.8-7.7) Lymphocytes # (Auto) 3.5 x10^3/uL (1.0-4.8) Monocytes # (Auto) 0.7 x10^3/uL (0.0-1.1) Eosinophils # (Auto) 0.3 x10^3/uL (0.0-0.7) Basophils # (Auto) 0.1 x10^3/uL (0.0-0.2) Sodium Level 141 mmol/L (136-145) Potassium Level 3.9 mmol/L (3.5-5.1) Chloride Level 104 mmol/L (98-107) Carbon Dioxide Level 29 mmol/L (21-32) Anion Gap 8 (6-14) Blood Urea Nitrogen 15 mg/dL (8-26) Creatinine 1.2 mg/dL (0.7-1.3) Estimated GFR (Cockcroft-Gault) 58.4 BUN/Creatinine Ratio 13 (6-20) Glucose Level 93 mg/dL (70-99) Calcium Level 8.8 mg/dL (8.5-10.1) Total Bilirubin 1.0 mg/dL (0.2-1.0) Aspartate Amino Transferase (AST) 12 U/L (15-37) L Alanine Aminotransferase (ALT) 15 U/L (16-63) L Alkaline Phosphatase 59 U/L (46-116) Total Protein 7.7 g/dL (6.4-8.2) Albumin 3.7 g/dL (3.4-5.0) Albumin/Globulin Ratio 0.9 (1.0-1.7) L Current Medications: I have reviewed the current psychotropics carefully including drug interactions. Risk benefit ratio favors no change other than as noted in my dictated progress note. Diagnosis: Problems: (1) Anxiety disorder (2) Impulse control disorder (3) Mild cognitive impairment (4) Major depressive disorder, recurrent episode (5) Cerebrovascular accident (CVA) due to vascular occlusion (6) Obsessive compulsive disorder JEANNINE MAGANA MD Jul 27, 2019 22:11
--- NOTE | 2019-07-28 03:53 | PN ---
DATE: 07/26/2019 PSYCHIATRIC PROGRESS NOTE This late entry, 07/26, covers elements not covered in my initial note. SUBJECTIVE: I met with the patient evening of 07/26. The patient slept 6-1/2 hours previous night. He has had no sexually inappropriate behaviors. I met with him in his room. REVIEW OF SYSTEMS: No CV, , pulmonary, eye, ENT system symptoms on review. He has difficulty with his words and speech consequent to his CVA. MENTAL STATUS EXAMINATION: Oriented to himself and situation. Speech as noted, abstraction fair, computation impaired, language function intact, attention span short. Mood and affect remain somewhat withdrawn at times, but less impulsive, less sexually inappropriate. LABORATORY DATA: Reviewed. IMPRESSION: Unchanged from initial note. PLAN: No change from initial note. MAN Dayami MAGANA MD DR: ABDIFATAH/mony JOB#: [id number] / [id number]
[2019-07-28 06:29] VITALS: BP 100/54
[2019-07-28] MEDS: VALPROATE ACID 250 MG/5 ML ORAL SOLUTION PO SCH ×3 (08:01→20:54)
[2019-07-28] MEDS: busPIRone 10 MG TABLET. PO SCH ×3 (08:01→20:55)
[2019-07-28] MEDS: ASPIRIN ENTERIC COATED 81 MG TABLET.DR. PO SCH (08:01)
[2019-07-28] MEDS: POTASSIUM CHLORIDE 20 MEQ TABLET.ER. PO SCH (08:01)
[2019-07-28] MEDS: SENNOSIDES/DOCUSATE 8.6/50MG TABLET. PO SCH ×2 (08:02→20:54)
[2019-07-28] MEDS: SERTRALINE 100 MG TABLET. PO SCH (08:02)
[2019-07-28] MEDS: SCOPOLAMINE 1.5MG PATCH. TD SCH (08:02)
[2019-07-28] MEDS: CALCIUM CARB/VIT D3 500/200 TABLET PO SCH ×2 (08:02→20:54)
[2019-07-28] MEDS ORDERED: CHOLECALCIFEROL (VITAMIN D3) 50,000 UNIT CAPSULE PO SCH (09:00)
[2019-07-28 17:23] VITALS: BP 127/73
[2019-07-28] MEDS: ATORVASTATIN CALCIUM 20 MG TABLET PO SCH (20:54)
--- NOTE | 2019-07-28 21:56 | PDOC ---
Exam Note: Zak Note: Please also refer to the separate dictated note~for this date of service dictated separately.~Patient seen individually. Discussed the patient with Nursing staff reviewed the chart.~Reviewed interim history and current functioning. Reviewed vital signs,~Labs/ Radiology~and current medications noted below. Continue current treatment with the changes noted in the dictated addendum note Assessment: Vital Signs/I&O: Vital Signs Date Time Temp Pulse Resp B/P (MAP) Pulse Ox O2 Delivery O2 Flow Rate FiO2 07/28/19 17:23 98.0 60 20 127/73 (91) 93 07/28/19 06:29 Room Air I & O 07/27/19 07/27/19 07/28/19 15:00 23:00 07:00 Intake Total 840 ml 480 ml 120 ml Balance 840 ml 480 ml 120 ml Current Medications: Meds: Current Medications Medications (Trade) Dose Ordered Sig/Steve Route PRN Reason Start Time Stop Time Status Last Admin Dose Admin Vitamin D (Vitamin D3) 50,000 unit WEEKLY PO 07/28/19 09:00 07/28/19 08:06 I have reviewed the current psychotropics carefully including drug interactions. Risk benefit ratio favors no change other than as noted in my dictated progress note. Diagnosis: Problems: (1) Medical clearance for psychiatric admission (2) Anxiety disorder (3) Impulse control disorder (4) Mild cognitive impairment (5) Major depressive disorder, recurrent episode (6) Cerebrovascular accident (CVA) due to vascular occlusion (7) Obsessive compulsive disorder JEANNINE MAGANA MD Jul 28, 2019 21:56
[2019-07-29 06:36] VITALS: BP 116/65
[2019-07-29] MEDS: ASPIRIN ENTERIC COATED 81 MG TABLET.DR. PO SCH (08:16)
[2019-07-29] MEDS: VALPROATE ACID 250 MG/5 ML ORAL SOLUTION PO SCH ×3 (08:16→21:04)
[2019-07-29] MEDS: CALCIUM CARB/VIT D3 500/200 TABLET PO SCH ×2 (08:16→21:04)
[2019-07-29] MEDS: SERTRALINE 100 MG TABLET. PO SCH (08:17)
[2019-07-29] MEDS: POTASSIUM CHLORIDE 20 MEQ TABLET.ER. PO SCH (08:17)
[2019-07-29] MEDS: SENNOSIDES/DOCUSATE 8.6/50MG TABLET. PO SCH ×2 (08:17→21:04)
[2019-07-29] MEDS: busPIRone 10 MG TABLET. PO SCH ×3 (08:17→21:04)
[2019-07-29 15:55] VITALS: BP 103/61
[2019-07-29] MEDS: ATORVASTATIN CALCIUM 20 MG TABLET PO SCH (21:04)
--- NOTE | 2019-07-29 21:59 | PDOC ---
Exam Note: Zak Note: Please also refer to the separate dictated note~for this date of service dictated separately.~Patient seen individually. Discussed the patient with Nursing staff reviewed the chart.~Reviewed interim history and current functioning. Reviewed vital signs,~Labs/ Radiology~and current medications noted below. Continue current treatment with the changes noted in the dictated addendum note Assessment: Vital Signs/I&O: Vital Signs Date Time Temp Pulse Resp B/P (MAP) Pulse Ox O2 Delivery O2 Flow Rate FiO2 07/29/19 15:55 97.2 55 20 103/61 (75) 96 07/28/19 06:29 Room Air I & O 07/28/19 07/28/19 07/29/19 15:00 23:00 07:00 Intake Total 840 ml 240 ml 240 ml Balance 840 ml 240 ml 240 ml Current Medications: I have reviewed the current psychotropics carefully including drug interactions. Risk benefit ratio favors no change other than as noted in my dictated progress note. Diagnosis: Problems: (1) Anxiety disorder (2) Impulse control disorder (3) Mild cognitive impairment (4) Major depressive disorder, recurrent episode (5) Cerebrovascular accident (CVA) due to vascular occlusion (6) Obsessive compulsive disorder JEANNINE MAGANA MD Jul 29, 2019 21:59
[2019-07-30 05:19] VITALS: BP 125/73
[2019-07-30] MEDS: POTASSIUM CHLORIDE 20 MEQ TABLET.ER. PO SCH (08:20)
[2019-07-30] MEDS: ASPIRIN ENTERIC COATED 81 MG TABLET.DR. PO SCH (08:20)
[2019-07-30] MEDS: busPIRone 10 MG TABLET. PO SCH ×3 (08:20→20:56)
[2019-07-30] MEDS: CALCIUM CARB/VIT D3 500/200 TABLET PO SCH ×2 (08:20→20:56)
[2019-07-30] MEDS: VALPROATE ACID 250 MG/5 ML ORAL SOLUTION PO SCH ×2 (08:21→13:45)
[2019-07-30] MEDS: SENNOSIDES/DOCUSATE 8.6/50MG TABLET. PO SCH ×2 (08:21→20:56)
[2019-07-30] MEDS: SERTRALINE 100 MG TABLET. PO SCH (08:21)
[2019-07-30] MEDS: medroxyPROGESTERone 5 MG TABLET PO SCH (08:24)
[2019-07-30 16:33] VITALS: BP 137/71
[2019-07-30] MEDS: ATORVASTATIN CALCIUM 20 MG TABLET PO SCH (20:56)
[2019-07-30] MEDS: DIVALPROEX 125 MG CAP.SPRINK PO SCH (21:00)
--- NOTE | 2019-07-30 21:50 | PDOC ---
Exam Note: Zak Note: Please also refer to the separate dictated note~for this date of service dictated separately.~Patient seen individually. Discussed the patient with Nursing staff reviewed the chart.~Reviewed interim history and current functioning. Reviewed vital signs,~Labs/ Radiology~and current medications noted below. Continue current treatment with the changes noted in the dictated addendum note Assessment: Vital Signs/I&O: Vital Signs Date Time Temp Pulse Resp B/P (MAP) Pulse Ox O2 Delivery O2 Flow Rate FiO2 07/30/19 16:33 97.8 63 16 137/71 (93) 95 07/28/19 06:29 Room Air I & O 07/29/19 07/29/19 07/30/19 15:00 23:00 07:00 Intake Total 1080 ml 480 ml 120 ml Balance 1080 ml 480 ml 120 ml Current Medications: Meds: Current Medications Medications (Trade) Dose Ordered Sig/Steve Route PRN Reason Start Time Stop Time Status Last Admin Dose Admin Medroxyprogesterone Acetate (Provera) 5 mg DAILY PO 07/30/19 09:00 07/30/19 08:24 Divalproex Sodium (Depakote Sprinkles) 250 mg TID PO 07/30/19 21:00 07/30/19 21:00 I have reviewed the current psychotropics carefully including drug interactions. Risk benefit ratio favors no change other than as noted in my dictated progress note. Diagnosis: Problems: (1) Anxiety disorder (2) Impulse control disorder (3) Mild cognitive impairment (4) Major depressive disorder, recurrent episode (5) Cerebrovascular accident (CVA) due to vascular occlusion (6) Obsessive compulsive disorder JEANNINE MAGANA MD Jul 30, 2019 21:50
--- NOTE | 2019-07-30 22:20 | PN ---
DATE: 07/28/2019 PSYCHIATRIC PROGRESS NOTE This late entry 07/28/2019 covers the elements not covered in my initial note. SUBJECTIVE: I met with the patient in the evening. According to SHARIF Larios, he slept 7-1/4 hours previous night, compliant with medications and laid in bed, off and on, but not sexually inappropriate, not trying to kiss staff members and other things he did at the skilled nursing, prompting this admission. REVIEW OF SYSTEMS: No CV, , pulmonary, eye, ENT system symptoms on review. Does have weakness consistent with his CVA. I met with him in his room at length. MENTAL STATUS EXAM: Oriented to himself and situation. Speech is difficult to understand due to phonological deficits. Abstraction fair, computation impaired, language function intact, attention span short. Mood and affect at times withdrawn, little impulsive at times. LABORATORY DATA: Reviewed. IMPRESSION: Unchanged from initial note. PLAN: No change from initial note. JEANNINE MAGANA MD DR: ABDIFATAH/mony JOB#: [id number] / [id number]
--- NOTE | 2019-07-30 23:42 | PN ---
DATE: 07/29/2019 PSYCHIATRIC PROGRESS NOTE This late entry 07/29/2019 covers elements not covered in my initial note. SUBJECTIVE: I met with the patient evening of 07/29/2019. The patient was also staffed at a treatment team meeting morning of 07/29/2019. The patient slept 6-1/2 hours, compliant with medications. Appetite 50-75%. He has not been sexually aggressive, disruptive or touching others. REVIEW OF SYSTEMS: No CV, , pulmonary, eye system symptoms on review. He does have weakness, status post cerebrovascular accident. MENTAL STATUS EXAM: Oriented to himself and situation. Speech is difficult to understand due to his phonological deficits and aphasia. Abstraction fair, computation impaired, language function as noted. No suicidal or homicidal ideation. Attention span is short. Mood is somewhat dysphoric at times. LABORATORY DATA: Reviewed. IMPRESSION: Major neurocognitive disorder, early vascular with delusion, depression, major depressive disorder, impulse control disorder. Rest unchanged. PLAN: Increase Provera to 5 mg a day, maintain BuSpar, Zoloft, Depakote unchanged. Valproic acid level therapeutic at 56. Transition back to [facility] next week, middle of the week. JEANNINE MAGANA MD DR: ABDIFATAH/mony JOB#: [id number] / [id number]
[2019-07-31 05:28] VITALS: BP 110/69
[2019-07-31] MEDS: SCOPOLAMINE 1.5MG PATCH. TD SCH (08:37)
[2019-07-31] MEDS: busPIRone 10 MG TABLET. PO SCH ×3 (08:37→21:40)
[2019-07-31] MEDS: SERTRALINE 100 MG TABLET. PO SCH (08:37)
[2019-07-31] MEDS: CALCIUM CARB/VIT D3 500/200 TABLET PO SCH ×2 (08:37→21:40)
[2019-07-31] MEDS: ASPIRIN ENTERIC COATED 81 MG TABLET.DR. PO SCH (08:37)
[2019-07-31] MEDS: medroxyPROGESTERone 5 MG TABLET PO SCH (08:37)
[2019-07-31] MEDS: POTASSIUM CHLORIDE 20 MEQ TABLET.ER. PO SCH (08:37)
[2019-07-31] MEDS: SENNOSIDES/DOCUSATE 8.6/50MG TABLET. PO SCH ×2 (08:37→21:40)
[2019-07-31] MEDS: DIVALPROEX 125 MG CAP.SPRINK PO SCH ×3 (08:38→21:40)
[2019-07-31 15:48] VITALS: BP 130/60
[2019-07-31] MEDS: ATORVASTATIN CALCIUM 20 MG TABLET PO SCH (21:40)
--- NOTE | 2019-07-31 22:22 | PDOC ---
Exam Note: Zak Note: Please also refer to the separate dictated note~for this date of service dictated separately.~Patient seen individually. Discussed the patient with Nursing staff reviewed the chart.~Reviewed interim history and current functioning. Reviewed vital signs,~Labs/ Radiology~and current medications noted below. Continue current treatment with the changes noted in the dictated addendum note Assessment: Vital Signs/I&O: Vital Signs Date Time Temp Pulse Resp B/P (MAP) Pulse Ox O2 Delivery O2 Flow Rate FiO2 07/31/19 15:48 97.6 61 130/60 (83) 93.0 07/31/19 05:28 13 96 07/28/19 06:29 Room Air I & O 07/30/19 07/30/19 07/31/19 15:00 23:00 07:00 Intake Total 960 ml 480 ml 120 ml Balance 960 ml 480 ml 120 ml Current Medications: I have reviewed the current psychotropics carefully including drug interactions. Risk benefit ratio favors no change other than as noted in my dictated progress note. Diagnosis: Problems: (1) Anxiety disorder (2) Impulse control disorder (3) Mild cognitive impairment (4) Major depressive disorder, recurrent episode (5) Cerebrovascular accident (CVA) due to vascular occlusion (6) Obsessive compulsive disorder JEANNINE MAGANA MD Jul 31, 2019 22:22
[2019-08-01 06:16] VITALS: BP 129/71
[2019-08-01] MEDS: SENNOSIDES/DOCUSATE 8.6/50MG TABLET. PO SCH ×2 (09:18→20:17)
[2019-08-01] MEDS: SERTRALINE 100 MG TABLET. PO SCH (09:18)
[2019-08-01] MEDS: medroxyPROGESTERone 5 MG TABLET PO SCH (09:18)
[2019-08-01] MEDS: POTASSIUM CHLORIDE 20 MEQ TABLET.ER. PO SCH (09:18)
[2019-08-01] MEDS: ASPIRIN ENTERIC COATED 81 MG TABLET.DR. PO SCH (09:18)
[2019-08-01] MEDS: busPIRone 10 MG TABLET. PO SCH ×3 (09:19→20:16)
[2019-08-01] MEDS: DIVALPROEX 125 MG CAP.SPRINK PO SCH ×3 (09:19→20:17)
[2019-08-01] MEDS: CALCIUM CARB/VIT D3 500/200 TABLET PO SCH ×2 (09:19→20:17)
[2019-08-01 16:13] VITALS: BP 101/59
[2019-08-01] MEDS: ATORVASTATIN CALCIUM 20 MG TABLET PO SCH (20:17)
--- NOTE | 2019-08-01 21:36 | PDOC ---
Exam Note: Zak Note: Please also refer to the separate dictated note~for this date of service dictated separately.~Patient seen individually. Discussed the patient with Nursing staff reviewed the chart.~Reviewed interim history and current functioning. Reviewed vital signs,~Labs/ Radiology~and current medications noted below. Continue current treatment with the changes noted in the dictated addendum note Assessment: Vital Signs/I&O: Vital Signs Date Time Temp Pulse Resp B/P (MAP) Pulse Ox O2 Delivery O2 Flow Rate FiO2 08/01/19 16:13 98.6 51 18 101/59 (73) 94 07/31/19 15:48 93.0 07/28/19 06:29 Room Air I & O 07/31/19 07/31/19 08/01/19 15:00 23:00 07:00 Intake Total 240 ml 360 ml 240 ml Balance 240 ml 360 ml 240 ml Current Medications: I have reviewed the current psychotropics carefully including drug interactions. Risk benefit ratio favors no change other than as noted in my dictated progress note. Diagnosis: Problems: (1) Anxiety disorder (2) Impulse control disorder (3) Mild cognitive impairment (4) Major depressive disorder, recurrent episode (5) Cerebrovascular accident (CVA) due to vascular occlusion (6) Obsessive compulsive disorder JEANNINE MAGANA MD Aug 01, 2019 21:36
--- NOTE | 2019-08-02 00:42 | PN ---
DATE: 07/30/2019 This late entry 07/30/2019, covers elements not covered in my initial note. SUBJECTIVE: I met with the patient evening of 07/30/2019. Per SHARIF Larios, the patient slept 3-1/4 hours previous night. He took a nap after breakfast to attend groups. He has some swallowing problems, coughing after receiving liquid Depakene. We will do a swallow eval and changed to Sprinkles. No sexually inappropriate behaviors, but given what he had at the snf, we will increase Provera to 5 mg a day. REVIEW OF SYSTEMS: Positive for his weakness, status post CVA. No CV, , pulmonary, eye system symptoms on review. MENTAL STATUS EXAM: Oriented to himself and situation. Speech often responses monosyllabic, has aphasia, phonological deficits, status post CVA, abstraction fair, computation impaired, language function intact, attention span short. Mood and affect somewhat withdrawn. LABORATORY DATA: Reviewed. IMPRESSION: Unchanged from initial note. PLAN: No change from initial note. JEANNINE MAGANA MD DR: ABDIFATAH/mony JOB#: [id number] / [id number]
[2019-08-02 05:49] VITALS: BP 165/87
[2019-08-02] MEDS: POTASSIUM CHLORIDE 20 MEQ TABLET.ER. PO SCH (07:46)
[2019-08-02] MEDS: CALCIUM CARB/VIT D3 500/200 TABLET PO SCH ×2 (07:46→21:09)
[2019-08-02] MEDS: busPIRone 10 MG TABLET. PO SCH ×3 (07:46→21:08)
[2019-08-02] MEDS: SENNOSIDES/DOCUSATE 8.6/50MG TABLET. PO SCH ×2 (07:46→21:09)
[2019-08-02] MEDS: SERTRALINE 100 MG TABLET. PO SCH (07:46)
[2019-08-02] MEDS: medroxyPROGESTERone 5 MG TABLET PO SCH (07:46)
[2019-08-02] MEDS: ASPIRIN ENTERIC COATED 81 MG TABLET.DR. PO SCH (07:47)
[2019-08-02] MEDS: DIVALPROEX 125 MG CAP.SPRINK PO SCH ×3 (07:47→21:08)
[2019-08-02 16:09] VITALS: BP 127/70
[2019-08-02] MEDS ORDERED: ACET325T9 PO (18:06)
[2019-08-02] MEDS ORDERED: DIVA-53 PO (18:11)
[2019-08-02] MEDS ORDERED: DIVA125C2 PO (18:13)
[2019-08-02] MEDS ORDERED: MAGN2400 PO (18:18)
[2019-08-02] MEDS ORDERED: MAG355OR11 PO (18:18)
[2019-08-02] MEDS ORDERED: METH29OI TP (18:19)
[2019-08-02] MEDS ORDERED: MEDR2.5T28 PO (18:21)
[2019-08-02] MEDS: ATORVASTATIN CALCIUM 20 MG TABLET PO SCH (21:08)
--- NOTE | 2019-08-02 21:48 | PDOC ---
Exam Note: Zak Note: Please also refer to the separate dictated note~for this date of service dictated separately.~Patient seen individually. Discussed the patient with Nursing staff reviewed the chart.~Reviewed interim history and current functioning. Reviewed vital signs,~Labs/ Radiology~and current medications noted below. Continue current treatment with the changes noted in the dictated addendum note Assessment: Vital Signs/I&O: Vital Signs Date Time Temp Pulse Resp B/P (MAP) Pulse Ox O2 Delivery O2 Flow Rate FiO2 08/02/19 16:09 97.9 50 16 127/70 (89) 97 08/02/19 05:49 Room Air 07/31/19 15:48 93.0 I & O 08/01/19 08/01/19 08/02/19 15:00 23:00 07:00 Intake Total 960 ml 120 ml Balance 960 ml 120 ml Current Medications: I have reviewed the current psychotropics carefully including drug interactions. Risk benefit ratio favors no change other than as noted in my dictated progress note. Diagnosis: Problems: (1) Anxiety disorder (2) Impulse control disorder (3) Mild cognitive impairment (4) Major depressive disorder, recurrent episode (5) Cerebrovascular accident (CVA) due to vascular occlusion (6) Obsessive compulsive disorder JEANNINE MAGANA MD Aug 02, 2019 21:48
--- NOTE | 2019-08-03 01:04 | PN ---
DATE: 07/31/2019 PSYCHIATRIC PROGRESS NOTE This late entry 07/31/2019 covers the elements not covered in my initial note. SUBJECTIVE: I met with the patient in the evening. The patient slept 6-1/2 hours previous night. He has been withdrawn, but otherwise compliant, sleeps with his head on the foot side of the bed, but no sexually inappropriate behaviors noted. I met with him in his room. REVIEW OF SYSTEMS: Positive for after effects of the CVA, weakness. No CV, , pulmonary, eye, ENT system symptoms on review. MENTAL STATUS EXAM: Oriented to himself and situation. Speech is often responses monosyllabic. Abstraction fair, computation impaired, language function intact, attention span short. Mood and affect withdrawn. LABORATORY DATA: Reviewed. IMPRESSION: Unchanged from initial note. PLAN: No change from initial note. MAN Dayami MAGANA MD DR: ABDIFATAH/mony JOB#: [id number] / [id number]
--- NOTE | 2019-08-03 01:09 | PN ---
DATE: 08/01/2019 PSYCHIATRIC PROGRESS NOTE. This is a late entry of 08/01/2019, covers the elements not covered in my initial note. SUBJECTIVE: I met with the patient evening of 08/01/2019. The patient slept 9-1/2 hours previous night. He remains isolative in his room, but no sexually inappropriate behaviors noted. He is more verbal, comes out for groups. REVIEW OF SYSTEMS: Positive for the weakness, status post cerebrovascular accident. No CV, , pulmonary, eye, ENT system symptoms on review. MENTAL STATUS EXAM: Oriented to himself and situation. Speech has some latency, often responses monosyllabic. Abstraction fair, computation impaired, language function intact, attention span short. Mood and affect somewhat withdrawn. LABORATORY DATA: Reviewed. IMPRESSION: Unchanged from initial note. PLAN: No change from initial note. MAN Dayami MAGANA MD DR: ABDIFATAH/mony JOB#: [id number] / [id number]
[2019-08-03] MEDS ORDERED: CHOL500021 PO (03:18)
[2019-08-03 06:01] VITALS: BP 114/51
[2019-08-03] MEDS: SCOPOLAMINE 1.5MG PATCH. TD SCH (08:08)
[2019-08-03] MEDS: POTASSIUM CHLORIDE 20 MEQ TABLET.ER. PO SCH (08:09)
[2019-08-03] MEDS: DIVALPROEX 125 MG CAP.SPRINK PO SCH (08:09)
[2019-08-03] MEDS: medroxyPROGESTERone 5 MG TABLET PO SCH (08:09)
[2019-08-03] MEDS: SERTRALINE 100 MG TABLET. PO SCH (08:09)
[2019-08-03] MEDS: busPIRone 10 MG TABLET. PO SCH (08:09)
[2019-08-03] MEDS: CALCIUM CARB/VIT D3 500/200 TABLET PO SCH (08:09)
[2019-08-03] MEDS: SENNOSIDES/DOCUSATE 8.6/50MG TABLET. PO SCH (08:10)
[2019-08-03] MEDS: ASPIRIN ENTERIC COATED 81 MG TABLET.DR. PO SCH (08:10)
--- NOTE | 2019-08-03 22:06 | PDOC ---
Exam Note: Zak Note: Please also refer to the separate dictated note~for this date of service dictated separately.~Patient seen individually. Discussed the patient with Nursing staff reviewed the chart.~Reviewed interim history and current functioning. Reviewed vital signs,~Labs/ Radiology~and current medications noted below. Continue current treatment with the changes noted in the dictated addendum note Assessment: Vital Signs/I&O: Vital Signs Date Time Temp Pulse Resp B/P (MAP) Pulse Ox O2 Delivery O2 Flow Rate FiO2 08/03/19 06:01 97.9 46 16 114/51 (72) 96 08/02/19 05:49 Room Air 07/31/19 15:48 93.0 I & O 08/02/19 08/02/19 08/03/19 15:00 23:00 07:00 Intake Total 720 ml 240 ml 120 ml Balance 720 ml 240 ml 120 ml Current Medications: I have reviewed the current psychotropics carefully including drug interactions. Risk benefit ratio favors no change other than as noted in my dictated progress note. Diagnosis: Problems: (1) Anxiety disorder (2) Impulse control disorder (3) Mild cognitive impairment (4) Major depressive disorder, recurrent episode (5) Cerebrovascular accident (CVA) due to vascular occlusion (6) Obsessive compulsive disorder JEANNINE MAGANA MD Aug 03, 2019 22:06
--- NOTE | 2019-08-04 06:49 | PN ---
DATE: 08/02/2019 PSYCHIATRIC PROGRESS NOTE This late entry 08/02/2019 covers the elements not covered in my initial note. SUBJECTIVE: I met with the patient in the evening of 08/02/2019. The patient slept 6-3/4 hours previous night. He isolates in his room, but has not been sexually inappropriate. He is compliant with his medications. I met with him in his room at length. REVIEW OF SYSTEMS: Positive for status post CVA and weakness. No CV, , pulmonary, eye, ENT system symptoms on review. Reliability varies. MENTAL STATUS EXAM: Oriented to himself and situation. Speech is often responses monosyllabic. Abstraction fair, computation impaired, language function intact. Mood and affect somewhat withdrawn. LABORATORY DATA: Reviewed. IMPRESSION: Unchanged from initial note. PLAN: No change from initial note. He has had no sexually inappropriate behaviors. We will consider transition back to custodial on 08/03/2019 or 08/04/2019. MAN Dayami MAGANA MD DR: ABDIFATAH/mony JOB#: [id number] / [id number]
--- NOTE | 2019-08-04 23:31 | DS ---
DATE OF DISCHARGE: 08/03/2019 DISCHARGE SUMMARY AND PSYCHIATRIC PROGRESS NOTE This late entry 08/03/2019 covers elements not covered in my initial note. REASON FOR ADMISSION: Please refer to the admission history for details. Briefly, the patient is a 78-year-old male referred to us from [facility] by Dr. Kate, his primary care physician after he had failed psychiatric interventions with myself at the facility. I had been following him long time and he was getting increasingly sexually inappropriate with staff and they were fearful of him at times. At times, it appears he was joking, but other times, it was quite intrusive and interventions was implemented including behavioral and psychotropic medication changes that failed resulting in this referral. He was scaring staff by approaching them from behind. He was pulling on another resident's shirts and taking their personal items. He had periods of agitation, grabbing others by their arms, trying to kiss female staff member, and "presses himself" against others. SIGNIFICANT FINDINGS AND CLINICAL COURSE: Following admission, the patient was seen daily individually by myself from a psychiatric standpoint, Medical followup with Dr. Perla. The patient remains somewhat confused at times, sexually inappropriate, but redirectable. Adjustments were made in his psychotropics and he seemed to respond to a combination of Provera 5 mg daily to help with his sexually aggressive behaviors, Depakote Sprinkles 250 mg t.i.d. with a Valproic acid level therapeutic at 56, BuSpar 10 mg t.i.d., and Zoloft 100 mg a day. REVIEW OF SYSTEMS: Prior to discharge on 08/03/2019, no CV, , pulmonary, eye system symptoms on review. Does have weakness consistent with his CVA. MENTAL STATUS EXAM: Oriented to himself and situation. Speech often responses monosyllabic, difficult to understand consequent to aphasia and phonological deficits. Insight limited, judgment marginal, language function as above. No active suicidal or homicidal ideation. No sexually inappropriate behaviors prior to discharge. CONDITION AT DISCHARGE: Improved. FINAL DIAGNOSES: Major neurocognitive disorder; vascular with delusion, depression; impulse control disorder; anxiety disorder, unspecified; symptoms of obsessive compulsive disorder. Rest unchanged from admission including status post cerebrovascular accident. DISCHARGE MEDICATIONS: Please refer to the MRAD. DISCHARGE FOLLOWUP: Outpatient psychiatric and medical followup at the [facility]. MAN Dayami MAGANA MD DR: Collin JOB#: [id number] / [id number]
== END 2019-08-03 11:30 | DRG 885 ==
LOC: ER 12:15 → GEROPSY 13:23
PROVIDERS: ADMIT Psychiatry & Neurology Psychiatry; ATTEND Psychiatry & Neurology Psychiatry
DX: F31.60 Bipolar disorder, current episode mixed, unspecified (principal); I69.359 Hemiplegia and hemiparesis following cerebral infarction affecting unspecified side; I69.851 Hemiplegia and hemiparesis following other cerebrovascular disease affecting right dominant side; F02.81 Dementia in other diseases classified elsewhere, unspecified severity, with behavioral disturbance; F01.51 Vascular dementia, unspecified severity, with behavioral disturbance; G30.9 Alzheimer's disease, unspecified; F63.9 Impulse disorder, unspecified; I10 Essential (primary) hypertension; F42.9 Obsessive-compulsive disorder, unspecified; F41.9 Anxiety disorder, unspecified; I69.320 Aphasia following cerebral infarction; E78.5 Hyperlipidemia, unspecified; I99.8 Other disorder of circulatory system; Z88.1 Allergy status to other antibiotic agents; Z88.5 Allergy status to narcotic agent; Z79.899 Other long term (current) drug therapy
CPT/HCPCS: 36415; 80053; 80061; 80164; 81001; 82306; 83036; 83540; 83550; 83735; 84436; 84443; 84480; 85025; 86592; 90471; 90686; 93005; 92610; 99285-25